=== PATIENT | male | born 1960 | race Caucasian/White ===

== ENCOUNTER 2016-06-02 12:42 | Inpatient (IN) | payer OTHER ==
[2016-06-02 16:11] VITALS: BMI 32.4
--- NOTE | 2016-06-02 19:39 | HP ---
CIWA Score - CIWA Score Nausea/Vomitin Muscle Tremors: 3 Anxiety: 3 Agitation: 3 Paroxysmal Sweats: 2 Orientation: 0-Oriented Tacttile Disturbances: 2-Mild Itch/Numbness/Burn Auditory Disturbances: 2-Mild Harshness/Frighten Visual Disturbances: 2-Mild Sensitivity Headache: 2-Mild CIWA-Ar Total Score: 22 Admission ROS BHS - HPI Chief Complaint: i need help to stop drinking alcohol,xanax,cocaine and marijuana dependence, withdrawal symptom,never been in detox before syncope alcohol related anxiety and depression insomnia nicotine dependence Allergies/Adverse Reactions: Allergies Allergy/AdvReac Type Severity Reaction Status Date / Time No Known Allergies Allergy Verified 06/02/16 17:22 History of Present Illness: this 56 years old male with alcohol,cocaine,xanax and marijuana dependence for detox as mentioned Exam Limitations: No Limitations - Ebola screening Have you traveled outside of the country in the last 21 days: No Have you had contact with anyone from an Ebola affected area: No Have you been sick,other than usual withdrawal symptoms: No Do you have a fever: No - Review of Systems Constitutional: Loss of Appetite, Malaise, Night Sweats, Changes in sleep, Weakness EENT: reports: Nose Congestion Respiratory: reports: No Symptoms reported Cardiac: reports: Palpitations GI: reports: Nausea, Vomiting, Abdominal cramping : reports: No Symptoms Reported Musculoskeletal: reports: Back Pain, Muscle Pain Integumentary: reports: Dryness Neuro: reports: Headache, Tremors Endocrine: reports: No Symptoms Reported Hematology: reports: No Symptoms Reported Psychiatric: reports: No Sypmtoms Reported, Judgement Intact, Mood/Affect Appropiate, Orientated x3, Anxious, Depressed Patient History - Patient Medical History Hx Anemia: No Hx Asthma: No Hx Chronic Obstructive Pulmonary Disease (COPD): No Hx Cancer: No Hx Cardiac Disorders: Yes (IN AGE 47) Hx Congestive Heart Failure: No Hx Hypertension: Yes (non compliance) Hx Hypercholesterolemia: Yes (non complaince) Hx Pacemaker: No HX Cerebrovascular Accident: No Hx Seizures: No Hx Diabetes: Yes (non compliance) Hx Gastrointestinal Disorders: No Hx Liver Disease: No Hx Genitourinary Disorders: No Hx Sexually Transmitted Disorders: No Hx Renal Disease (ESRD): No Hx Thyroid Disease: No Hx Human Immunodeficiency Virus (HIV): No (last 2012 negative) Hx Hepatitis C: No Hx Depression: Yes (anxiety) Hx Suicide Attempt: No Hx Bipolar Disorder: No Hx Schizophrenia: No Other Medical History: no suicidal,no homicidal - Patient Surgical History Past Surgical History: Yes Hx Neurologic Surgery: No Hx Cataract Extraction: No Hx Cardiac Surgery: No Hx Lung Surgery: No Hx Breast Surgery: No Hx Breast Biopsy: No Hx Abdominal Surgery: No Hx Appendectomy: No Hx Cholecystectomy: No Hx Genitourinary Surgery: No Hx Section: No Hx Orthopedic Surgery: Yes (RT FOOT 03/12/2012) Anesthesia Reaction: No - PPD History Previous Implant?: Yes Documented Results: Negative w/o proof Implanted On Prior [facility] Admission?: No PPD to be Administered?: Yes - Smoking Cessation Smoking history: Current every day smoker Have you smoked in the past 12 months: Yes Aproximately how many cigarettes per day: 20 Hx Chewing Tobacco Use: No Initiated information on smoking cessation: Yes 'Breaking Loose' booklet given: 06/02/16 - Substance & Tx. History Hx Alcohol Use: Yes Hx Substance Use: Yes Substance Use Type: Alcohol, Tranquilizers Hx Substance Use Treatment: No - Substances Abused Alprazolam (Xanax) Route: Oral Frequency: Daily Amount used: 4mg Age of first use: 56 Date of Last Use: 06/02/16 Cocaine Route: Inhalation Frequency: Daily Amount used: 3 bags Age of first use: 26 Date of Last Use: 05/31/16 Alcohol Route: Oral Frequency: Daily Amount used: 1/2pint of whisky/6 packs of 12 ozs of beer Age of first use: 20 Date of Last Use: 05/29/16 Marijuana/Hashish Route: Smoking Frequency: 3-6 times per week Amount used: 20$ Age of first use: 20 Date of Last Use: 05/31/16 Family Disease History - Family Disease History Family History: Denies Admission Physical Exam BHS - Vital Signs Vital Signs: Vital Signs - 24 hr 06/02/16 16:08 Temperature 96.1 F L Pulse Rate 95 H Respiratory 20 Rate Blood Pressure 124/87 - Physical General Appearance: Yes: Moderate Distress, Tremorous, Irritable, Sweating, Anxious HEENTM: Yes: Hearing grossly Normal, VINCENT, Pharynx Normal, Nasal Congestion Respiratory: Yes: Lungs Clear, Normal Breath Sounds, No Respiratory Distress Neck: Yes: Supple, Trachea in good position Breast: Yes: Within Normal Limits Cardiology: Yes: Within Normal Limits, Regular Rhythm, Regular Rate, S1, S2 Abdominal: Yes: Within Normal Limits, Normal Bowel Sounds, Non Tender, Flat, Soft Genitourinary: Yes: Within Normal Limits Back: Yes: Muscle Spasm Musculoskeletal: Yes: Back pain, Muscle Pain Extremities: Yes: Normal Range of Motion, Tremors Neurological: Yes: Within Normal Limits, rn call center II-XII NML intact, Fully Oriented, Alert, Motor Strength 5/5 Integumentary: Yes: Dry Lymphatic: Yes: Within Normal Limits - Diagnostic (1) Uncomplicated sedative, hypnotic or anxiolytic withdrawal Current Visit: Yes Status: Acute (2) Cocaine dependence Current Visit: Yes Status: Acute (3) Cannabis dependence Current Visit: Yes Status: Acute (4) Alcohol dependence with uncomplicated withdrawal Current Visit: Yes Status: Acute (5) Syncope Current Visit: Yes Status: Acute (6) Neuropathy Current Visit: Yes Status: Acute (7) Old [place] (myocardial infarction) Current Visit: Yes Status: Acute (8) Anxiety and depression Current Visit: Yes Status: Acute (9) Insomnia Current Visit: Yes Status: Acute (10) Nicotine dependence Current Visit: Yes Status: Acute (11) DM2 (diabetes mellitus, type 2) Current Visit: Yes Status: Acute (12) Hypertension Current Visit: Yes Status: Acute (13) Hypercholesterolemia Current Visit: Yes Status: Acute Cleared for Admission S - Detox or Rehab [facility] Level of Care: Medically Managed Detox Regimen/Protocol: Valium S Breath Alcohol Content Breath Alcohol Content: 0 Urine Drug Screen - Results Drug Screen Negative: No Urine Drug Screen Results: THC-Marijuana, ROBERT-Cocaine, BZO-Benzodiazepines
[2016-06-02] MEDS ORDERED: LOPERAMIDE HCL 2 MG CAPSULE PO PRN (20:02)
[2016-06-02] MEDS ORDERED: MENTHOL/PHENOL 1 EACH UD MM PRN (20:02)
[2016-06-02] MEDS ORDERED: MAGNESIUM HYDROX 2400MG/30ML ORAL SUSPENSION 30 ML CUP PO PRN (20:02)
[2016-06-02] MEDS ORDERED: hydrOXYzine PAMOATE 50 MG CAPSULE (FP) PO PRN (20:02)
[2016-06-02] MEDS ORDERED: IBUPROFEN 400 MG TABLET (FP) PO PRN (20:02)
[2016-06-02] MEDS ORDERED: diazePAM 5 MG TABLET PO ONE (20:02)
[2016-06-02] MEDS ORDERED: diphenhydrAMINE HCL 50 MG CAPSULE PO PRN (20:02)
[2016-06-02] MEDS ORDERED: MAG HYDROX/AL HYDROX/SIMETH 30 ML UNIT-DOSE CUP PO PRN (20:02)
[2016-06-02] MEDS ORDERED: MAGNESIUM CITRATE 300 ML BOTTLE PO PRN (20:02)
[2016-06-02] MEDS ORDERED: ACETAMINOPHEN 325 MG TABLET (FP) PO PRN (20:02)
[2016-06-02] MEDS ORDERED: P-EPHED 60MG/TRIPROLIDI 2.5MG TABLET PO PRN (20:02)
[2016-06-02] MEDS ORDERED: guaiFENesin/D-METHORPHAN HB 10 ML UNIT-DOSE CUPS PO PRN (20:02)
[2016-06-02] MEDS ORDERED: NICOTINE POLACRILEX 2 MG GUM BUC PRN (20:02)
[2016-06-02] MEDS: THIAMINE HCL 100 MG TABLET (FP) PO SCH (22:32)
[2016-06-02] MEDS: GABAPENTIN 300 MG CAPSULE (FP) PO SCH (22:32)
[2016-06-02] MEDS: diazePAM 5 MG TABLET PO SCH (22:55)
[2016-06-03 00:38] LABS: URINE APPEARANCE CLEAR; URINE BILIRUBIN NEGATIVE (NEGATIVE); URINE BLOOD NEGATIVE (NEGATIVE); URINE COLOR YELLOW; URINE GLUCOSE (UA) 1+ (NEGATIVE); URINE KETONE NEGATIVE (NEGATIVE); URINE LEUK ESTERASE NEGATIVE (NEGATIVE); URINE NITRITE NEGATIVE (NEGATIVE); URINE PROTEIN NEGATIVE (NEGATIVE); URINE UROBILINOGEN NEGATIVE E.U./dl (0.2-1.0)
[2016-06-03] MEDS: diazePAM 5 MG TABLET PO SCH ×3 (05:23→22:47)
[2016-06-03] MEDS: GABAPENTIN 300 MG CAPSULE (FP) PO SCH ×3 (05:23→22:47)
[2016-06-03] MEDS ORDERED: INSULIN (NOVOLOG) ASPART 100 UNITS/ML 10ML VIAL ONE ×2 (07:41→17:14)
[2016-06-03] MEDS: metFORMIN HCL 500 MG TABLET (FP) PO SCH ×2 (07:47→17:25)
[2016-06-03] MEDS: INSULIN SLIDING SCALE (NOVOLOG) 1 VIAL SQ SCH ×2 (07:47→17:25)
[2016-06-03 10:12] LABS: MCH 32.9 pg (25.7-33.7); MCHC 33.3 g/dl (32.0-35.9); MEAN CELL VOLUME 98.8 fl (80-96); MEAN PLT VOLUME 8.9 fl (7.5-11.1); PLATELET COUNT 292 K/MM3 (134-434); RDW 13.2 % (11.9-15.9); WHITE BLOOD COUNT 6.8 K/mm3 (4.0-10.0)
--- NOTE | 2016-06-03 10:22 | EKG ---
Test Reason : Blood Pressure : / mmHG Vent. Rate : 083 BPM Atrial Rate : 083 BPM P-R Int : 130 ms QRS Dur : 086 ms QT Int : 372 ms P-R-T Axes : 059 051 032 degrees QTc Int : 437 ms NORMAL SINUS RHYTHM POSSIBLE LEFT ATRIAL ENLARGEMENT NONSPECIFIC ST ABNORMALITY Confirmed by RAH ALLEN MD ([id number]) on 06/03/2016 10:21:52 AM Referred By: Confirmed By:RAH ALLEN MD
[2016-06-03] MEDS: PRENATAL VITAMINS W/ FOLIC ACID TABLET (FP) PO SCH (10:40)
[2016-06-03] MEDS: diazePAM 5 MG TABLET PO PRN (10:42)
[2016-06-03 11:01] LABS: SICKLE CELL SCREEN NEGATIVE (NEGATIVE)
[2016-06-03 12:02] LABS: ALBUMIN 3.6 g/dl (3.4-5.0); ALK PHOS 82 U/L (45-117); ANION GAP 11 (8-16); BILIRUBIN,TOTAL 0.6 mg/dL (0.2-1.0); CALCIUM 9.3 mg/dL (8.5-10.1); CHOLESTEROL 225 mg/dL (50-200); CO2 28 mmol/L (21-32); CREATININE 1.2 mg/dL (0.7-1.3); GLUCOSE,RANDOM 250 mg/dL (74-106); SGOT/AST 31 U/L (15-37); SGPT/ALT 40 U/L (12-78); TOT PROT 7.1 g/dl (6.4-8.2)
--- NOTE | 2016-06-03 12:29 | PN ---
S CIWA - CIWA Score Nausea/Vomitin Muscle Tremors: 3 Anxiety: 3 Agitation: 2 Paroxysmal Sweats: 2 Orientation: 0-Oriented Tacttile Disturbances: 1-Very Mild Itch/Numbness Auditory Disturbances: 1-Very Mild Visual Disturbances: 1-Very Mild Sensitivity Headache: 2-Mild CIWA-Ar Total Score: 18 BHS Progress Note (SOAP) Subjective: ALERT,IRRITABLE,ANXIOUS,INTERRUPTED SLEEP,TREMOR,PAIN IN THE BODY AND BACK Objective: 06/03/16 12:26 Vital Signs Temperature 97.9 F 06/03/16 10:15 Pulse Rate 96 H 06/03/16 10:15 Respiratory Rate 20 06/03/16 10:15 Blood Pressure 118/85 06/03/16 10:15 O2 Sat by Pulse Oximetry (%) Laboratory Last Values WBC 6.8 K/mm3 (4.0-10.0) 06/03/16 06:00 RBC 5.05 M/mm3 (4.00-5.60) 06/03/16 06:00 Hgb 16.6 GM/dL (11.7-16.9) 06/03/16 06:00 Hct 49.9 % (35.4-49) H 06/03/16 06:00 MCV 98.8 fl (80-96) H 06/03/16 06:00 MCHC 33.3 g/dl (32.0-35.9) 06/03/16 06:00 RDW 13.2 % (11.9-15.9) 06/03/16 06:00 Plt Count 292 K/MM3 (134-434) 06/03/16 06:00 MPV 8.9 fl (7.5-11.1) 06/03/16 06:00 Sickle Cell Screen Negative (NEGATIVE) 06/03/16 06:00 Sodium 140 mmol/L (136-145) 06/03/16 06:00 Potassium 4.4 mmol/L (3.5-5.1) 06/03/16 06:00 Chloride 101 mmol/L (98-107) 06/03/16 06:00 Carbon Dioxide 28 mmol/L (21-32) 06/03/16 06:00 Anion Gap 11 (8-16) 06/03/16 06:00 BUN 18 mg/dL (7-18) 06/03/16 06:00 Creatinine 1.2 mg/dL (0.7-1.3) 06/03/16 06:00 Creat Clearance w eGFR > 60 (>60) 06/03/16 06:00 POC Glucometer 226 UNITS (()) 06/03/16 05:22 Random Glucose 250 mg/dL (74-106) H 06/03/16 06:00 Calcium 9.3 mg/dL (8.5-10.1) 06/03/16 06:00 Total Bilirubin 0.6 mg/dL (0.2-1.0) 06/03/16 06:00 AST 31 U/L (15-37) 06/03/16 06:00 ALT 40 U/L (12-78) 06/03/16 06:00 Alkaline Phosphatase 82 U/L (45-117) 06/03/16 06:00 Total Protein 7.1 g/dl (6.4-8.2) 06/03/16 06:00 Albumin 3.6 g/dl (3.4-5.0) 06/03/16 06:00 Triglycerides 239 mg/dL (35-160) H 06/03/16 06:00 Cholesterol 225 mg/dL (50-200) H 06/03/16 06:00 Urine Color Yellow 06/02/16 23:30 Urine Appearance Clear 06/02/16 23:30 Urine pH 5.0 (5.0-8.0) 06/02/16 23:30 Ur Specific [place] 1.030 (1.001-1.035) 06/02/16 23:30 Urine Protein Negative (NEGATIVE) 06/02/16 23:30 Urine Glucose (UA) 1+ (NEGATIVE) H 06/02/16 23:30 Urine Ketones Negative (NEGATIVE) 06/02/16 23:30 Urine Blood Negative (NEGATIVE) 06/02/16 23:30 Urine Nitrite Negative (NEGATIVE) 06/02/16 23:30 Urine Bilirubin Negative (NEGATIVE) 06/02/16 23:30 Urine Urobilinogen Negative E.U./dl (0.2-1.0) 06/02/16 23:30 Ur Leukocyte Esterase Negative (NEGATIVE) 06/02/16 23:30 06/03/16 12:27 EKG NSR NO CHEST PAIN,NO SOB,NO DIZZINESS Assessment: 06/03/16 12:27 06/03/16 12:28 WITHDRAWAL SYMPTOM Plan: CONTINUE DETOX
--- NOTE | 2016-06-03 12:32 | PN ---
[facility] Progress Note Note: PATIENT IS SPORADIC USE OF PERCOCET,URINE FOR DRUG SCREEN NEGATIVE FOR OPIATE, STATED DID NOT NEED DETOX FROMOPIATE,WILL D.C METHADONE,REGIMEN LIBRIUM REGIMEN ONLY
--- NOTE | 2016-06-03 12:36 | PN ---
[facility] Progress Note Note: ADDENDUM PATIENT IS ON VALIUM REGIMEN ONLY NOT LIBRIUM
[2016-06-03 13:37] LABS: LDL CHOLESTEROL (ONLY SJRH) 145 mg/dL (5-100)
--- NOTE | 2016-06-03 14:48 | CONSULT ---
[facility] Psychiatric Consult - Data Date of interview: 06/03/16 Admission source: [facility] Identifying data: First admission to [facility] for this 56 y/o male seeking detox treatment for alcohol,cocaine,xanax,marihuana and opiate dependence.Patient is ,a father of two,domiciled,unemployed and supported on [employer] benefits. Substance Abuse History: - Smoking Cessation. Smoking history: Current every day smoker. Have you smoked in the past 12 months: Yes. Aproximately how many cigarettes per day: 20. Hx Chewing Tobacco Use: No. Initiated information on smoking cessation: Yes. 'Breaking Loose' booklet given: 06/02/16. - Substance & Tx. History. Hx Alcohol Use: Yes. Hx Substance Use: Yes. Substance Use Type : Alcohol, Tranquilizers. Hx Substance Use Treatment: No. - Substances Abused. Alprazolam (Xanax). Route: Oral. Frequency: Daily. Amount used: 4mg. Age of first use: 56. Date of Last Use: 06/02/16. Cocaine. Route: Inhalation. Frequency: Daily. Amount used: 3 bags. Age of first use: 26. Date of Last Use: 05/31/16. Alcohol. Route: Oral. Frequency: Daily. Amount used: 1/2pint of whisky/6 packs of 12 ozs of beer. Age of first use: 20. Date of Last Use: 05/29/16. Marijuana/Hashish. Route: Smoking. Frequency: 3-6 times per week. Amount used: 20$. Age of first use: 20. Date of Last Use: 05/31/16. Confirmed by patient. Medical History: Diabetes mellitus,hypertension,hypercholesterolemia and a history of myocardial infarction.Noted additional history of orthosurgery for fracture of right nakle (hardware in situ). Psychiatric History: Patient denies. Physical/Sexual Abuse/Trauma History: Patient denies. Additional Comment: Urine Drug Screen Results: THC-Marijuana, ROBERT-Cocaine, BZO- Benzodiazepines.Noted. Mental Status Exam - Mental Status Exam Alert and Oriented to: Time, Place, Person Cognitive Function: Good Patient Appearance: Well Groomed (obese) Mood: Hopeful, Euthymic Affect: Appropriate, Normal Range Patient Behavior: Appropriate, Cooperative Speech Pattern: Clear, Appropriate Voice Loudness: Normal Thought Process: Goal Oriented Thought Disorder: Not Present Hallucinations: Denies Suicidal Ideation: Denies Homicidal Ideation: Denies Insight/Judgement: Poor Sleep: Poorly, Difficulty falling asleep Appetite: Good Muscle strength/Tone: Normal Gait/Station: Normal Psychiatric Findings - Problem List ([place] 1, 2,3) (1) Alcohol dependence with uncomplicated withdrawal Current Visit: Yes Status: Acute (2) Cannabis dependence Current Visit: Yes Status: Acute (3) Cocaine dependence Current Visit: Yes Status: Acute (4) Uncomplicated sedative, hypnotic or anxiolytic withdrawal Current Visit: Yes Status: Acute (5) Nicotine dependence Current Visit: Yes Status: Acute (6) Substance induced mood disorder Current Visit: Yes Status: Acute (7) DM2 (diabetes mellitus, type 2) Current Visit: Yes Status: Chronic (8) Hypercholesterolemia Current Visit: Yes Status: Chronic (9) Hypertension Current Visit: Yes Status: Chronic (10) Neuropathy Current Visit: Yes Status: Chronic (11) Old [place] (myocardial infarction) Current Visit: Yes Status: Chronic (12) Insomnia Current Visit: Yes Status: Acute - Initial Treatment Plan Initial Treatment Plan: Psychoeducation.Detoxification.Medication : remeron 7.5 mg po hs.Side effects/benefits discussed with the patient.Consent (verbal) given for this careplan.Observation.
[2016-06-03] MEDS: THIAMINE HCL 100 MG TABLET (FP) PO SCH (22:47)
[2016-06-03] MEDS: MIRTAZAPINE 15 MG TABLET (FP) PO SCH (22:47)
[2016-06-04] MEDS: GABAPENTIN 300 MG CAPSULE (FP) PO SCH ×3 (05:56→23:01)
[2016-06-04] MEDS: diazePAM 5 MG TABLET PO PRN (05:58)
[2016-06-04] MEDS: metFORMIN HCL 500 MG TABLET (FP) PO SCH ×2 (07:33→17:03)
[2016-06-04] MEDS ORDERED: INSULIN (NOVOLOG) ASPART 100 UNITS/ML 10ML VIAL ONE ×2 (07:39→18:30)
[2016-06-04] MEDS: INSULIN SLIDING SCALE (NOVOLOG) 1 VIAL SQ SCH ×2 (07:44→18:03)
[2016-06-04] MEDS: diazePAM 5 MG TABLET PO SCH ×2 (10:36→23:01)
[2016-06-04] MEDS: PRENATAL VITAMINS W/ FOLIC ACID TABLET (FP) PO SCH (10:36)
--- NOTE | 2016-06-04 10:46 | PN ---
S CIWA - CIWA Score Nausea/Vomitin Muscle Tremors: 3 Anxiety: 2 Agitation: 2 Paroxysmal Sweats: 1-Minimal Palms Moist Orientation: 0-Oriented Tacttile Disturbances: 1-Very Mild Itch/Numbness Auditory Disturbances: 1-Very Mild Visual Disturbances: 1-Very Mild Sensitivity Headache: 2-Mild CIWA-Ar Total Score: 16 S Progress Note (SOAP) Subjective: ALERT,IRRITABLE,ANXIOUS,INTERRUPTED SLEEP,PAIN IN THE BODY Objective: 06/04/16 10:45 Vital Signs Temperature 97.3 F L 06/04/16 09:54 Pulse Rate 99 H 06/04/16 09:54 Respiratory Rate 16 06/04/16 09:54 Blood Pressure 120/78 06/04/16 09:54 O2 Sat by Pulse Oximetry (%) Laboratory Last Values WBC 6.8 K/mm3 (4.0-10.0) 06/03/16 06:00 RBC 5.05 M/mm3 (4.00-5.60) 06/03/16 06:00 Hgb 16.6 GM/dL (11.7-16.9) 06/03/16 06:00 Hct 49.9 % (35.4-49) H 06/03/16 06:00 MCV 98.8 fl (80-96) H 06/03/16 06:00 MCHC 33.3 g/dl (32.0-35.9) 06/03/16 06:00 RDW 13.2 % (11.9-15.9) 06/03/16 06:00 Plt Count 292 K/MM3 (134-434) 06/03/16 06:00 MPV 8.9 fl (7.5-11.1) 06/03/16 06:00 Sickle Cell Screen Negative (NEGATIVE) 06/03/16 06:00 Sodium 140 mmol/L (136-145) 06/03/16 06:00 Potassium 4.4 mmol/L (3.5-5.1) 06/03/16 06:00 Chloride 101 mmol/L (98-107) 06/03/16 06:00 Carbon Dioxide 28 mmol/L (21-32) 06/03/16 06:00 Anion Gap 11 (8-16) 06/03/16 06:00 BUN 18 mg/dL (7-18) 06/03/16 06:00 Creatinine 1.2 mg/dL (0.7-1.3) 06/03/16 06:00 Creat Clearance w eGFR > 60 (>60) 06/03/16 06:00 POC Glucometer 227 UNITS (()) 06/03/16 16:23 Random Glucose 250 mg/dL (74-106) H 06/03/16 06:00 Calcium 9.3 mg/dL (8.5-10.1) 06/03/16 06:00 Total Bilirubin 0.6 mg/dL (0.2-1.0) 06/03/16 06:00 AST 31 U/L (15-37) 06/03/16 06:00 ALT 40 U/L (12-78) 06/03/16 06:00 Alkaline Phosphatase 82 U/L (45-117) 06/03/16 06:00 Total Protein 7.1 g/dl (6.4-8.2) 06/03/16 06:00 Albumin 3.6 g/dl (3.4-5.0) 06/03/16 06:00 Triglycerides 239 mg/dL (35-160) H 06/03/16 06:00 Cholesterol 225 mg/dL (50-200) H 06/03/16 06:00 Total LDL Cholesterol 145 mg/dL (5-100) H 06/03/16 06:00 HDL Cholesterol 64 mg/dL (40-60) H 06/03/16 06:00 Urine Color Yellow 06/02/16 23:30 Urine Appearance Clear 06/02/16 23:30 Urine pH 5.0 (5.0-8.0) 06/02/16 23:30 Ur Specific [place] 1.030 (1.001-1.035) 06/02/16 23:30 Urine Protein Negative (NEGATIVE) 06/02/16 23:30 Urine Glucose (UA) 1+ (NEGATIVE) H 06/02/16 23:30 Urine Ketones Negative (NEGATIVE) 06/02/16 23:30 Urine Blood Negative (NEGATIVE) 06/02/16 23:30 Urine Nitrite Negative (NEGATIVE) 06/02/16 23:30 Urine Bilirubin Negative (NEGATIVE) 06/02/16 23:30 Urine Urobilinogen Negative E.U./dl (0.2-1.0) 06/02/16 23:30 Ur Leukocyte Esterase Negative (NEGATIVE) 06/02/16 23:30 RPR Titer Nonreactive (NONREACTIVE) 06/03/16 06:00 Assessment: 06/04/16 10:45 WITHDRAWAL SYMPTOM Plan: CONTINUE DETOX,BGM MONITORING
[2016-06-04] MEDS: MIRTAZAPINE 15 MG TABLET (FP) PO SCH (23:02)
[2016-06-04] MEDS: THIAMINE HCL 100 MG TABLET (FP) PO SCH (23:03)
[2016-06-05] MEDS: GABAPENTIN 300 MG CAPSULE (FP) PO SCH ×3 (05:26→22:32)
[2016-06-05] MEDS: metFORMIN HCL 500 MG TABLET (FP) PO SCH ×2 (08:03→17:02)
[2016-06-05] MEDS: INSULIN SLIDING SCALE (NOVOLOG) 1 VIAL SQ SCH ×2 (08:03→17:13)
[2016-06-05] MEDS: PRENATAL VITAMINS W/ FOLIC ACID TABLET (FP) PO SCH (10:30)
[2016-06-05] MEDS: diazePAM 5 MG TABLET PO SCH ×2 (10:30→22:32)
--- NOTE | 2016-06-05 14:53 | PN ---
[facility] Progress Note (SOAP) Subjective: Anxious, nausea, sweating, interrupted sleep Objective: 06/05/16 14:50 Last Vital Signs Temp Pulse Resp BP Pulse Ox 97.2 F L 99 H 18 116/79 06/05/16 13:51 06/05/16 13:51 06/05/16 13:51 06/05/16 13:51 Laboratory Tests 06/02/16 06/02/16 06/03/16 17:36 23:30 05:22 WBC RBC Hgb Hct MCV MCHC RDW Plt Count MPV Sickle Cell Screen Sodium Potassium Chloride Carbon Dioxide Anion Gap BUN Creatinine Creat Clearance w eGFR POC Glucometer 154 226 Random Glucose Calcium Total Bilirubin AST ALT Alkaline Phosphatase Total Protein Albumin Triglycerides Cholesterol Total LDL Cholesterol HDL Cholesterol Urine Color Yellow Urine Appearance Clear Urine pH 5.0 Ur Specific [place] 1.030 Urine Protein Negative Urine Glucose (UA) 1+ H Urine Ketones Negative Urine Blood Negative Urine Nitrite Negative Urine Bilirubin Negative Urine Urobilinogen Negative Ur Leukocyte Esterase Negative RPR Titer 06/03/16 06/03/16 06/03/16 06:00 06:00 06:00 WBC 6.8 RBC 5.05 Hgb 16.6 Hct 49.9 H MCV 98.8 H MCHC 33.3 RDW 13.2 Plt Count 292 MPV 8.9 Sickle Cell Screen Negative Sodium 140 Potassium 4.4 Chloride 101 Carbon Dioxide 28 Anion Gap 11 BUN 18 Creatinine 1.2 Creat Clearance w eGFR > 60 POC Glucometer Random Glucose 250 H Calcium 9.3 Total Bilirubin 0.6 AST 31 ALT 40 Alkaline Phosphatase 82 Total Protein 7.1 Albumin 3.6 Triglycerides 239 H Cholesterol 225 H Total LDL Cholesterol 145 H HDL Cholesterol 64 H Urine Color Urine Appearance Urine pH Ur Specific [place] Urine Protein Urine Glucose (UA) Urine Ketones Urine Blood Urine Nitrite Urine Bilirubin Urine Urobilinogen Ur Leukocyte Esterase RPR Titer Nonreactive 06/03/16 06/04/16 06/05/16 16:23 18:01 05:29 WBC RBC Hgb Hct MCV MCHC RDW Plt Count MPV Sickle Cell Screen Sodium Potassium Chloride Carbon Dioxide Anion Gap BUN Creatinine Creat Clearance w eGFR POC Glucometer 227 329 153 Random Glucose Calcium Total Bilirubin AST ALT Alkaline Phosphatase Total Protein Albumin Triglycerides Cholesterol Total LDL Cholesterol HDL Cholesterol Urine Color Urine Appearance Urine pH Ur Specific [place] Urine Protein Urine Glucose (UA) Urine Ketones Urine Blood Urine Nitrite Urine Bilirubin Urine Urobilinogen Ur Leukocyte Esterase RPR Titer Labs noted: elevated Lipid panel Assessment: 06/05/16 14:50 Withdrawal symptoms Noted with HLD Plan: Continue detox HLD: start lipitor 10mg PO qhs, low fat/low cholesterol diet
[2016-06-05] MEDS ORDERED: ATORVASTATIN CA 10 MG TABLET (FP) PO SCH (22:00)
[2016-06-05] MEDS: MIRTAZAPINE 15 MG TABLET (FP) PO SCH (22:31)
[2016-06-05] MEDS: THIAMINE HCL 100 MG TABLET (FP) PO SCH (22:33)
[2016-06-06] MEDS: GABAPENTIN 300 MG CAPSULE (FP) PO SCH (05:35)
[2016-06-06] MEDS ORDERED: INSULIN (NOVOLOG) ASPART 100 UNITS/ML 10ML VIAL ONE (07:47)
[2016-06-06] MEDS: INSULIN SLIDING SCALE (NOVOLOG) 1 VIAL SQ SCH (07:49)
[2016-06-06] MEDS: metFORMIN HCL 500 MG TABLET (FP) PO SCH (07:49)
--- NOTE | 2016-06-06 08:44 | DS ---
[facility] Detox Discharge Summary Admission Date: 06/02/16 Discharge Date: 06/06/16 - History Present History: Alcohol Dependence, Cannabis Dependence, Cocaine Dependence, Sedative Dependence - Physical Exam Results Vital Signs: Vital Signs Temperature 97 F L 06/06/16 05:56 Pulse Rate 77 06/06/16 05:56 Respiratory Rate 18 06/06/16 05:56 Blood Pressure 110/71 06/06/16 05:56 O2 Sat by Pulse Oximetry (%) - Treatment Hospital Course: Detox Protocol Followed, Detoxed Safely, Responded well, Discharged Condition Good, Rehab Referral Accepted - Medication Discharge Medications: Ambulatory Orders Gabapentin [Neurontin] 300 mg PO TID 03/29/15 Metformin HCl 500 mg PO BID 03/29/15 Lisinopril [Prinivil] 10 mg PO DAILY 06/04/16 - Diagnosis (1) Alcohol dependence with uncomplicated withdrawal Current Visit: Yes Status: Chronic (2) Anxiety and depression Current Visit: Yes Status: Chronic (3) Cannabis dependence Current Visit: Yes Status: Chronic (4) Cocaine dependence Current Visit: Yes Status: Chronic Qualifiers: Substance use status: uncomplicated Qualified Code(s): F14.20 - Cocaine dependence, uncomplicated (5) Insomnia Current Visit: Yes Status: Acute (6) Nicotine dependence Current Visit: Yes Status: Chronic Qualifiers: Nicotine product type: cigarettes Substance use status: uncomplicated Qualified Code(s): F17.210 - Nicotine dependence, cigarettes, uncomplicated (7) Substance induced mood disorder Current Visit: Yes Status: Acute (8) Syncope Current Visit: Yes Status: Acute (9) Uncomplicated sedative, hypnotic or anxiolytic withdrawal Current Visit: Yes Status: Chronic (10) DM2 (diabetes mellitus, type 2) Current Visit: Yes Status: Chronic Qualifiers: Diabetes mellitus complication status: without complication (11) Hypercholesterolemia Current Visit: Yes Status: Chronic (12) Hypertension Current Visit: Yes Status: Chronic (13) Neuropathy Current Visit: Yes Status: Chronic (14) [place] (myocardial infarction) Current Visit: Yes Status: Chronic (15) Acute bronchitis Current Visit: No Status: Acute Qualifiers: Bronchitis organism: unspecified organism Qualified Code(s): J20.9 - Acute bronchitis, unspecified - AMA Did Patient Leave Against Medical Advice: No
[2016-06-06] MEDS ORDERED: diazePAM 5 MG TABLET PO SCH (10:00)
[2016-06-06 10:21] VITALS: BP 125/91; PULSE 104; TEMP 97.5
[2016-06-06] MEDS: PRENATAL VITAMINS W/ FOLIC ACID TABLET (FP) PO SCH (10:51)
== END 2016-06-06 10:55 | disposition home or self-care (01) | DRG 774 ==
LOC: YASAS 12:42 → Y6N 19:56
PROVIDERS: ADMIT Internal Medicine Addiction Medicine; ATTEND Internal Medicine Addiction Medicine
PROC: HZ2ZZZZ Detoxification Services for Substance Abuse Treatment (ICD-10-PCS; principal; 2016-06-02)
DX: F13.230 Sedative, hypnotic or anxiolytic dependence with withdrawal, uncomplicated (principal); F10.230 Alcohol dependence with withdrawal, uncomplicated; F14.20 Cocaine dependence, uncomplicated; F12.20 Cannabis dependence, uncomplicated; F17.210 Nicotine dependence, cigarettes, uncomplicated; F41.8 Other specified anxiety disorders; F19.24 Other psychoactive substance dependence with psychoactive substance-induced mood disorder; J20.9 Acute bronchitis, unspecified; E11.9 Type 2 diabetes mellitus without complications; E78.00 Pure hypercholesterolemia, unspecified; I10 Essential (primary) hypertension; I25.2 Old myocardial infarction; G62.9 Polyneuropathy, unspecified; Z86.79 Personal history of other diseases of the circulatory system; Z91.14 Patient's other noncompliance with medication regimen
CPT/HCPCS: 36415; 80053; 80061; 81003; 83721; 85027; 85660; 86593; 93005; 93010

== ENCOUNTER 2018-11-01 22:53 | Emergency (ER) | payer OTHER ==
--- NOTE | 2018-11-01 23:01 | PDOC ---
History of Present Illness - General Stated Complaint: SYNCOPE/NEAR SYNCOPE Time Seen by Provider: 11/01/18 23:00 History Source: Patient Exam Limitations: No Limitations - History of Present Illness Initial Comments: Pt is a 58 yo M, with PMH of HTN, DM, WPW with prior ablation, and prior polysubstance abuse (went to detox previously for alcohol, THC, cocaine, and xanax), who is presenting with complaints of near-syncope. Pt states he had multiple teeth pulled at 2pm today, received local novicaine, and then slept at home for a few hours. He then went to the bar, where he drank a beer and ate a hamburger, which he then vomited. Pt states he "felt like he passed out" but his friends caught him and he did not fall or hit his head. Pt endorses medication compliance. Pt denies any recent fevers/chills, headache, vision changes, chest pain, palpitations, SOB, abdominal pain, urinary symptoms, diarrhea/constipation, or leg swelling. Allergies: NKDA PCP: Gilbert Montenegro Social: Pt smokes 1/2 pack every other day, THC use, social alcohol. Pt states he has abstained from other drugs and heavy alcohol since his last detox. Pt denies any recent travel or sick contacts. Surgical: 2 molars pulled today. Family: no relevant history. 11/01/18 23:16 11/02/18 00:23 Past History - Travel Traveled outside of the country in the last 30 days: No Close contact w/someone who was outside of country & ill: No - Past Medical History Allergies/Adverse Reactions: Allergies Allergy/AdvReac Type Severity Reaction Status Date / Time No Known Allergies Allergy Verified 06/02/16 17:22 Home Medications: Ambulatory Orders Gabapentin [Neurontin] 300 mg PO TID 03/29/15 metFORMIN HCL [Metformin HCl] 500 mg PO BID 03/29/15 Lisinopril [Prinivil] 10 mg PO DAILY 06/04/16 Anemia: No Asthma: No Cancer: No Cardiac Disorders: Yes (VT AGE 47) CVA: No COPD: No CHF: No Diabetes: Yes (non compliance) GI Disorders: No Disorders: No HTN: Yes (non compliance) Hypercholesterolemia: Yes (non complaince) Kidney Stones: No Liver Disease: No Psychiatric Problems: Yes Seizures: No Thyroid Disease: No - Surgical History Abdominal Surgery: No Appendectomy: No Cardiac Surgery: No Cholecystectomy: No Lung Surgery: No Neurologic Surgery: No Orthopedic Surgery: Yes (RT FOOT 03/12/2012) - Reproductive History Testicular Surgery: No - Suicide/Smoking/Psychosocial Hx Smoking History: Current every day smoker Have you smoked in the past 12 months: Yes Number of Cigarettes Smoked Daily: 20 'Breaking Loose' booklet given: 06/02/16 Hx Alcohol Use: Yes Drug/Substance Use Hx: Yes Substance Use Type: Alcohol, Tranquilizers Hx Substance Use Treatment: No Review of Systems - Review of Systems Able to Perform ROS?: Yes Is the patient limited Kyrgyz proficient: No Constitutional: Yes: See HPI, Diaphoresis, Weight Stable. No: Chills, Fever, Loss of Appetite, Malaise, Weakness HEENTM: Yes: See HPI, Dental Problems. No: Blurred Vision, Double Vision, Nose Congestion, Throat Pain, Throat Swelling, Difficulty Swallowing Respiratory: No: Cough, Orthopnea, Shortness of Breath Cardiac (ROS): Yes: Lightheadedness. No: Chest Pain, Edema, Irregular Heart Rate, Palpitations, Syncope (near syncope), Chest Tightness ABD/GI: Yes: Nausea, Vomiting. No: Constipated, Diarrhea, Poor Appetite, Poor Fluid Intake, Rectal Bleeding, Abdominal cramping : No: Burning, Dysuria, Frequency, Pain, Urgency Musculoskeletal: No: Back Pain, Joint Pain, Muscle Pain, Muscle Weakness Integumentary: No: Rash Neurological: No: Headache, Numbness, Weakness, Unsteady Gait, Dizziness Psychiatric: No: Sleep Pattern Change, Change in Appetite Endocrine: No: Increased Urine, Change in Weight Hematologic/Lymphatic: No: Anemia, Blood Clots, Easy Bleeding, Easy Bruising All Other Systems: Reviewed and Negative *Physical Exam - Physical Exam Comments: 11/01/18 23:28 Vitals stable, pt afebrile. Pt in NAD, joking with staff and lying comfortably on the stretcher; obese body habitus. Pt alert and oriented x3. labor economist generally intact, muscular strength and sensation intact. No midline spinal tenderness, step-offs, or crepitus. Head normocephalic, atraumatic. Eyes PERRLA, EOMI. Packing along R upper posterior molars with mild serosanguinous drainage. No significant erythema, drainage, or bleeding noted. Oropharynx without erythema or exudates, no LAD b/l. No nasal congestion, hearing intact. Clear heart sounds, S1/S2, no JVD, b/l pedal edema, or heart murmur. Clear lung sounds, no respiratory distress, wheezes, crackles, or accessory muscle use. No abdominal or CVA tenderness to palpation, no rebound, no guarding. Abdomen soft, non-distended, and with normoactive bowel sounds. Skin without jaundice or rash. 11/02/18 00:25 ED Treatment Course - LABORATORY CBC & Chemistry Diagram: 11/02/18 00:08 11/02/18 00:08 Medical Decision Making - Medical Decision Making Pt was seen at bedside, also will be seen by attending Dr. Saldana. Pt presenting with complaints of vomiting x1 after receiving local novicaine and having 2 molars pulled earlier today. Bedside BGM 165. Will evaluate for anemia , electrolyte imbalances. Will obtain ECG. EMS provided 1 L IV NS and 4 mg IV zofran, pt states he already feels much better. Will continue to reassess pt and monitor for symptomatic improvement. ECG: NSR, intervals WNL (HR 74, WV 130, QRS 82). TWI in III, with no significant ST segment changes. No significant changes from prior ECG (2017). 11/01/18 23:30 Labs sent Providing tylenol and home dose of gabapentin (800 mg PO) as pt did not take his medication earlier. 11/02/18 00:25 CBC and CMP WNL Trop <.02 with no EKG changes Pt safe for d/c home. Strict return precautions provided with pt understanding. 11/02/18 02:08 *DC/Admit/Observation/Transfer Diagnosis at time of Disposition: Near syncope H/O tooth extraction Qualifiers: Tooth loss class: unspecified tooth loss Qualified Code(s): K08.409 - Partial loss of teeth, unspecified cause, unspecified class DM2 (diabetes mellitus, type 2) Qualifiers: Diabetes mellitus mcc insulin use: without mcc use Diabetes mellitus complication status: without complication Qualified Code(s): E11.9 - Type 2 diabetes mellitus without complications - Discharge Dispostion Disposition: HOME Condition at time of disposition: Improved Decision to Admit order: No - Referrals Referrals: Gilbert Cruz [Primary Care Provider] - - Patient Instructions Printed Discharge Instructions: DI for Syncope in Adults (Fainting) Additional Instructions: You were seen in the ER today for an episode of fainting. The results of your labs and imaging today were normal. Please follow-up with your primary care doctor within 1-2 days to discuss your visit and make sure your symptoms have improved. Please return to the ER if you have any worsening pain, development of fevers or chills, loss of consciousness, inability to tolerate food or fluids , or any other concerns. - Post Discharge Activity
[2018-11-01 23:14] VITALS: BP 127/86; PULSE 77; TEMP 98.2; BMI 34.2
--- NOTE | 2018-11-02 00:05 | PDOC ---
Documentation entered by Ev Patel SCRIBE, acting as scribe for Danae Saldana MD. Danae Saldana MD: This documentation has been prepared by the robelibe, Ev Patel SCRIBE, under my direction and personally reviewed by me in its entirety. I confirm that the documentation accurately reflects all work, treatment, procedures, and medical decision making performed by me. Attending Attestation - Resident Resident Name: Chelle Fernandez - HPI HPI: 11/01/18 23:49 The patient is a 58-year-old male with a past medical history significant for HTN, HLD, WPW, AL s/p cath, DM who presents to the emergency department via EMS s/p a syncopal episode SOCK DRIER. The patient had a procedure done at the dentists office at 2:00 pm today, where he was given local novocaine and had multiple teeth pulled out. The patient reports a few hours later he went to the bar to watch the game, where he had one beer and a hamburger, which he vomited. The patient reports following he felt dizzy followed by witnessed LOC. Denies falling on the floor or head injury. Denies fever, chills, headache, vision changes, chest pain, or shortness of breath. The patient reports about 2 months prior he had a similar syncopal episode at home, denies follow up. Allergies: NKDA PCP: Dr. Cruz - Physicial Exam PE: 11/01/18 23:54 Agree with resident exam. gen: alert, NAD CV: rrr no m/r/g Pulm: CTA b/l abdomen: obese, soft, non tender, non distended. - Medical Decision Making 11/01/18 23:59 Pt presents to the ED complaining of lightheadness, nausea and vomiting that occurred while drinking. Questionable whether the patient had syncope--he reports LOC, but remained upright on a bar stool. EKG shows normal sinus rhythm. Will check labs and cardiac enzymes, reassess.
[2018-11-02] MEDS ORDERED: GABAPENTIN 400 MG CAPSULE (FP) PO ONE (00:26)
[2018-11-02] MEDS ORDERED: ACETAMINOPHEN 325 MG TABLET (FP) PO ONE (00:26)
[2018-11-02] MEDS ORDERED: ACETAMINOPHEN 325 MG TABLET (FP) ONE (00:32)
[2018-11-02 01:17] LABS: BASO % 0.6 % (0-2.0); EOS % 0.6 % (0-4.5); HEMATOCRIT 44.5 % (35.4-49); HEMOGLOBIN 14.6 GM/dL (11.7-16.9); LYMPH % 8.2 % (8-40); MCHC 32.7 g/dl (32.0-35.9); MEAN CELL VOLUME 97.8 fl (80-96); MEAN PLT VOLUME 8.5 fl (7.5-11.1); MONO % 7.7 % (3.8-10.2); NEUT % 82.9 % (42.8-82.8); PLATELET COUNT 279 K/MM3 (134-434); RBC 4.55 M/mm3 (4.00-5.60); RDW 13.4 % (11.9-15.9); WHITE BLOOD COUNT 11.1 K/mm3 (4.0-10.0)
[2018-11-02 01:38] LABS: ALBUMIN 3.7 g/dl (3.4-5.0); ALK PHOS 75 U/L (45-117); ANION GAP 9 MMOL/L (8-16); BILIRUBIN,TOTAL 0.5 mg/dL (0.2-1); BLOOD UREA NITROGEN 24.3 mg/dL (7-18); CALCIUM 9.1 mg/dL (8.5-10.1); CHLORIDE 107 mmol/L (98-107); CO2 26 mmol/L (21-32); CREATININE 1.6 mg/dL (0.55-1.3); GLUCOSE,RANDOM 154 mg/dL (74-106); LIPASE 180 U/L (73-393); POTASSIUM 4.6 mmol/L (3.5-5.1); SGOT/AST 37 U/L (15-37); SGPT/ALT 43 U/L (13-61); SODIUM 142 mmol/L (136-145); TOT PROT 6.5 g/dl (6.4-8.2)
--- NOTE | 2018-11-02 11:45 | EKG ---
Test Reason : Blood Pressure : / mmHG Vent. Rate : 074 BPM Atrial Rate : 074 BPM P-R Int : 130 ms QRS Dur : 082 ms QT Int : 392 ms P-R-T Axes : 062 031 013 degrees QTc Int : 435 ms NORMAL SINUS RHYTHM NORMAL ECG WHEN COMPARED WITH ECG OF 02-JUN-2016 19:54, NONSPECIFIC T WAVE ABNORMALITY NOW EVIDENT IN LATERAL LEADS Confirmed by ROXANA FERNANDEZ MD ([id number]) on 11/02/2018 11:44:48 AM Referred By: Confirmed By:ROXANA FERNANDEZ MD
== END 2018-11-02 02:43 | disposition home or self-care (01) ==
LOC: JER 22:53 → SUPCPDRO 22:53 → JER 11-02 02:43
DX: R55 Syncope and collapse (principal); K08.409 Partial loss of teeth, unspecified cause, unspecified class; E11.9 Type 2 diabetes mellitus without complications; I10 Essential (primary) hypertension; I25.10 Atherosclerotic heart disease of native coronary artery without angina pectoris; Z95.5 Presence of coronary angioplasty implant and graft; Z91.14 Patient's other noncompliance with medication regimen
CPT/HCPCS: 36415; 80053; 82962; 83690; 84484; 85025; 93005; 93010; 99283-25

== ENCOUNTER 2021-04-18 13:58 | Emergency (ER) | payer OTHER ==
[2021-04-18 14:03] VITALS: BP 145/89; PULSE 108; TEMP 97; BMI 29.7
[2021-04-18] MEDS ORDERED: DIPHTH,PERTUSS(ACELL),TET 0.5 ML DISP.SYRIN IM ONE ×2 (14:22→14:28)
== END 2021-04-18 15:20 | disposition short-term general hospital (02) ==
LOC: JERFT 13:58
PROC: 3E0234Z Introduction of Serum, Toxoid and Vaccine into Muscle, Percutaneous Approach (ICD-10-PCS; principal; 2021-04-18)
DX: S09.90XA Unspecified injury of head, initial encounter (principal); S61.411A Laceration without foreign body of right hand, initial encounter; S50.01XA Contusion of right elbow, initial encounter; W11.XXXA Fall on and from ladder, initial encounter
CPT/HCPCS: 90471; 90715; 99285-25

== ENCOUNTER 2022-09-19 17:36 | Inpatient (IN) | payer OTHER ==
[2022-09-19] MEDS ORDERED: DEXAMETHASONE SOD PHOSPHATE 10 MG/1 ML VIAL IVPUSH ONE (18:02)
[2022-09-19] MEDS ORDERED: CLINDAMYCIN 900 MG PREMIX IVPB 900 MG/50 ML BAG IVPB ONE ×2 (18:02→18:19)
[2022-09-19] MEDS ORDERED: SUCCINYLCHOLINE CHLORIDE 200 MG/10 ML VIAL IVPUSH ONE (18:09)
[2022-09-19] MEDS ORDERED: KETAMINE HCL 200 MG/20 ML VIAL IVPUSH ONE (18:11)
[2022-09-19] MEDS ORDERED: KETAMINE HCL 200 MG/20 ML VIAL ONE (18:18)
[2022-09-19] MEDS ORDERED: DEXAMETHASONE SOD PHOSPHATE 10 MG/1 ML VIAL ONE (18:18)
[2022-09-19] MEDS ORDERED: PROPOFOL 1,000,000 MCG/100 ML VIAL ONE (18:19)
[2022-09-19] MEDS ORDERED: RAPID SEQUENCE INTUBATION KIT NR ONE (18:20)
[2022-09-19] MEDS ORDERED: LIDOCAINE HCL 2% (50ML VIAL) INF ONE (18:27)
[2022-09-19] MEDS ORDERED: LIDOCAINE HCL 2% (20ML MULTI-DOSE VIAL) ONE (18:29)
[2022-09-19 18:47] LABS: VENOUS BASE EXCESS 0.2 mmol/L (-2-2); VENOUS O2 SATURATION 61.9 % (70-80); VENOUS PCO2 43.6 mmHg (38-52); VENOUS PH 7.385 (7.310-7.410)
[2022-09-19 18:50] LABS: BASO % 0.2 % (0-2.0); EOS % 0.1 % (0-4.5); HEMATOCRIT 47.1 % (35.4-49); HEMOGLOBIN 15.6 GM/dL (11.7-16.9); LYMPH % 4.6 % (8-40); MCH 31.7 pg (25.7-33.7); MEAN CELL VOLUME 96.1 fl (80-96); MEAN PLT VOLUME 7.9 fl (7.5-11.1); MONO % 6.8 % (3.8-10.2); NEUT % 88.3 % (42.8-82.8); PLATELET COUNT 297 10^3/uL (134-434); RBC 4.91 M/mm3 (4.00-5.60); RDW 14.1 % (11.9-15.9); WHITE BLOOD COUNT 19.6 K/mm3 (4.0-10.0)
[2022-09-19] MEDS ORDERED: ROCURONIUM BROMIDE 50 MG/5 ML SYRINGE ONE (18:50)
[2022-09-19 18:54] LABS: INR 1.03 (0.83-1.09); PROTHROMBIN TIME (PATIENT) 11.9 SEC (9.7-13.0)
[2022-09-19 18:57] LABS: ACTIVATED PTT 30.2 SECONDS (25.2-36.5)
[2022-09-19] MEDS: PROPOFOL 1,000,000 MCG/100 ML VIAL IVPB SCH ×2 (19:00→22:15)
[2022-09-19 19:10] LABS: POTASSIUM 4.2 mmol/L (3.5-5.1)
[2022-09-19 19:13] LABS: BLOOD UREA NITROGEN 15.9 mg/dL (7-18); CALCIUM 9.1 mg/dL (8.5-10.1)
[2022-09-19] MEDS ORDERED: morphine CARPU-JECT 2 MG/1 ML DISP.SYRIN IVPUSH ONE (19:15)
[2022-09-19 19:16] LABS: CREATININE 1.1 mg/dL (0.55-1.3)
[2022-09-19 19:18] LABS: BILIRUBIN,TOTAL 0.8 mg/dL (0.2-1); TOT PROT 6.3 g/dl (6.4-8.2)
[2022-09-19 19:20] LABS: LACTIC ACID 3.2 mmol/L (0.4-2.0)
[2022-09-19 19:21] LABS: N-TERMINAL BNP 725.8 pg/ml (5-125)
[2022-09-19] MEDS ORDERED: ROCURONIUM BROMIDE 50 MG/5 ML VIAL IV ONE (19:24)
[2022-09-19] MEDS ORDERED: CEFEPIME HCL/D5W 2 GM/50 ML BAG IVPB ONE (19:34)
[2022-09-19] MEDS ORDERED: VANCOMYCIN 1 GM in D5W (PRE-DOCKED) 1,000 MG/250 ML (RESTRICTED TO ID ONLY IVPB ONE (19:34)
[2022-09-19] MEDS ORDERED: MIDAZOLAM HCL 2 MG/2 ML SINGLE DOSE VIAL ONE ×2 (19:47→20:05)
[2022-09-19 19:54] LABS: ARTERIAL BLD GAS O2 SATURATION 98.2 % (95-98); ARTERIAL BLOOD GAS BASE EXCESS -6.4 mmol/L (-2-2); ARTERIAL BLOOD GAS PO2 133.2 mmHg (80-100); ARTERIAL BLOOD GAS pH 7.238 (7.350-7.450)
[2022-09-19 19:58] LABS: ALLENS TEST POSITIVE
[2022-09-19 20:00] LABS: VENT MODE A/C; VENT RATE 20
[2022-09-19] MEDS ORDERED: MIDAZOLAM HCL 2 MG/2 ML SINGLE DOSE VIAL IVPUSH ONE (20:05)
[2022-09-19] MEDS ORDERED: FENTANYL NS IVPB 500 MCG/100 ML BAG IVPB ONE (20:44)
[2022-09-19] MEDS: ENOXAPARIN NA (PORCINE) 40 MG/0.4 ML DISP.SYRIN SQ SCH (21:33)
[2022-09-19] MEDS: AZITHROMYCIN IVPB 500 MG/250 ML BAG IVPB SCH (21:34)
[2022-09-19] MEDS: FENTANYL IVPB 500 MCG/100 ML BAG IVPB SCH (21:38)
[2022-09-19] MEDS ORDERED: INSULIN (NOVOLOG) ASPART 100 UNITS/ML 10ML VIAL ONE (21:49)
[2022-09-19] MEDS: INSULIN SLIDING SCALE (NOVOLOG) 1 VIAL SQ SCH (21:50)
[2022-09-19] MEDS ORDERED: CEFEPIME 2 GM in DEXTROSE 5%-WATER 100 ML IVPB ONE (22:00)
[2022-09-19] MEDS ORDERED: VANCOMYCIN 1 GM/200 ML PREMIX BAG (RESTRICTED TO ID ONLY) IVPB ONE (22:00)
[2022-09-19 22:14] LABS: ALLENS TEST POSITIVE; ARTERIAL BLD GAS O2 SATURATION 99.5 % (95-98); ARTERIAL BLOOD GAS BASE EXCESS -1.7 mmol/L (-2-2); ARTERIAL BLOOD GAS PO2 230.9 mmHg (80-100); ARTERIAL BLOOD GAS pH 7.378 (7.350-7.450)
[2022-09-19 22:15] LABS: VENT MODE A/C; VENT RATE 22
[2022-09-19] MEDS: CHLORHEXIDINE GLUCONATE 4% CLEANSER FOR DECOLONIZATION TP SCH (22:16)
[2022-09-19] MEDS: MUPIROCIN 2% TOPICAL OINTMENT FOR DECOLONIZATION NS SCH (22:16)
[2022-09-19 23:13] LABS: LACTIC ACID 2.8 mmol/L (0.4-2.0)
[2022-09-20] MEDS: INSULIN SLIDING SCALE (NOVOLOG) 1 VIAL SQ SCH ×5 (04:45→23:16)
[2022-09-20 04:46] LABS: EPI CELLS 17 /uL (0-25.1); HYALINE CASTS 4 /uL (0-3.1); PH,URINE 5.5 (5.0-8.0); URINE APPEARANCE CLEAR; URINE BACTERIA 2 /uL (0-1359); URINE BILIRUBIN NEGATIVE (NEGATIVE); URINE COLOR YELLOW; URINE GLUCOSE (UA) 2+ (NEGATIVE); URINE KETONE TRACE (NEGATIVE); URINE LEUK ESTERASE NEGATIVE (NEGATIVE); URINE NITRITE NEGATIVE (NEGATIVE); URINE PROTEIN 2+ (NEGATIVE); URINE RBC 7 /uL (0-23.9); URINE UROBILINOGEN 0.2 mg/dL (0.2-1.0); URINE WBC 11 /uL (0-25.8)
[2022-09-20 05:15] LABS: PHENCYCLIDINE,URINE NEGATIVE (NEGATIVE); URINE AMPHETAMINES NEGATIVE (NEGATIVE); URINE BARBITURATES NEGATIVE (NEGATIVE)
[2022-09-20 05:16] LABS: METHADONE, UR NEGATIVE (NEGATIVE)
[2022-09-20 05:20] LABS: COCAINE, UR POSITIVE (NEGATIVE); OPIATES, URI POSITIVE (NEGATIVE); URINE BENZODIAZEPINES POSITIVE (NEGATIVE)
[2022-09-20] MEDS ORDERED: INSULIN (NOVOLOG) ASPART 100 UNITS/ML 10ML VIAL ONE ×2 (05:55→12:00)
[2022-09-20 06:04] LABS: ARTERIAL BLD GAS O2 SATURATION 96.8 % (95-98); ARTERIAL BLOOD GAS BASE EXCESS -1.2 mmol/L (-2-2); ARTERIAL BLOOD GAS PO2 83.5 mmHg (80-100); ARTERIAL BLOOD GAS pH 7.454 (7.350-7.450)
[2022-09-20 06:05] LABS: ALLENS TEST POSITIVE; VENT MODE A/C; VENT RATE 22
[2022-09-20 07:07] LABS: HEMATOCRIT 42.7 % (35.4-49); HEMOGLOBIN 14.2 GM/dL (11.7-16.9); MCH 31.8 pg (25.7-33.7); MCHC 33.2 g/dl (32.0-35.9); MEAN CELL VOLUME 95.8 fl (80-96); MEAN PLT VOLUME 7.9 fl (7.5-11.1); PLATELET COUNT 281 10^3/uL (134-434); RBC 4.46 M/mm3 (4.00-5.60); RDW 13.7 % (11.9-15.9); WHITE BLOOD COUNT 15.3 K/mm3 (4.0-10.0)
[2022-09-20 07:10] LABS: INR 1.15 (0.83-1.09); PROTHROMBIN TIME (PATIENT) 13.3 SEC (9.7-13.0)
[2022-09-20 07:13] LABS: ACTIVATED PTT 28.4 SECONDS (25.2-36.5)
[2022-09-20 07:25] LABS: POTASSIUM 4.4 mmol/L (3.5-5.1)
[2022-09-20 07:26] LABS: CALCIUM 8.2 mg/dL (8.5-10.1)
[2022-09-20 07:27] LABS: BLOOD UREA NITROGEN 21.4 mg/dL (7-18); MAGNESIUM 1.9 mg/dL (1.8-2.4)
[2022-09-20 07:30] LABS: CREATININE 1.3 mg/dL (0.55-1.3)
[2022-09-20 07:32] LABS: BILIRUBIN,TOTAL 0.4 mg/dL (0.2-1); TOT PROT 5.3 g/dl (6.4-8.2)
[2022-09-20 07:39] LABS: ALBUMIN 2.4 g/dl (3.4-5.0)
[2022-09-20] MEDS ORDERED: FENTANYL NS IVPB 500 MCG/100 ML BAG IVPB ONE (07:53)
[2022-09-20 09:09] LABS: ANISOCYTOSIS 0; MACROCYTOSIS 1+
[2022-09-20] MEDS: AZITHROMYCIN IVPB 500 MG/250 ML BAG IVPB SCH (09:34)
[2022-09-20] MEDS: ENOXAPARIN NA (PORCINE) 40 MG/0.4 ML DISP.SYRIN SQ SCH (09:34)
[2022-09-20] MEDS ORDERED: CEFTRIAXONE 1 GM in DEXTROSE 5%-WATER - 50 ML IVPB SCH (10:00)
[2022-09-20] MEDS: PANTOPRAZOLE SODIUM 40 MG VIAL IVPUSH SCH (10:55)
[2022-09-20] MEDS: MUPIROCIN 2% TOPICAL OINTMENT FOR DECOLONIZATION NS SCH ×2 (10:55→22:02)
[2022-09-20] MEDS ORDERED: SODIUM CHLORIDE 1,000 ML IV STA (12:32)
[2022-09-20] MEDS ORDERED: SODIUM CHLORIDE 1,000 ML IV SCH ×2 (12:45→14:03)
[2022-09-20] MEDS: AMPICILLIN NA/SULBACTAM NA 3 GM in SODIUM CHLORIDE 100 ML IVPB SCH ×2 (15:07→20:04)
[2022-09-20] MEDS: PROPOFOL 1,000,000 MCG/100 ML VIAL IVPB SCH (20:03)
[2022-09-20] MEDS: FENTANYL IVPB 500 MCG/100 ML BAG IVPB SCH (20:04)
[2022-09-20] MEDS ORDERED: FENTANYL CITRATE/PF 50 MCG/ML VIAL IVPUSH ONE ×2 (21:36→21:38)
[2022-09-20] MEDS ORDERED: MIDAZOLAM HCL 2 MG/2 ML SINGLE DOSE VIAL IVPUSH ONE (21:37)
[2022-09-20] MEDS ORDERED: FENTANYL IVPB 500 MCG/100 ML BAG IVPB SCH ×2 (21:45→23:45)
[2022-09-20] MEDS: CHLORHEXIDINE GLUCONATE 4% CLEANSER FOR DECOLONIZATION TP SCH (22:02)
[2022-09-20] MEDS ORDERED: FENTANYL INJECTION 500 MCG in SODIUM CHLORIDE 100 ML IVPB SCH (23:45)
[2022-09-20] MEDS ORDERED: FENTANYL NS IVPB 500 MCG/100 ML BAG IVPB SCH (23:59)
[2022-09-21] MEDS: AMPICILLIN NA/SULBACTAM NA 3 GM in SODIUM CHLORIDE 100 ML IVPB SCH ×4 (02:17→20:25)
[2022-09-21] MEDS: PROPOFOL 1,000,000 MCG/100 ML VIAL IVPB SCH ×2 (02:34→06:43)
[2022-09-21] MEDS: INSULIN SLIDING SCALE (NOVOLOG) 1 VIAL SQ SCH ×2 (05:45→12:23)
[2022-09-21 07:15] LABS: BASO % 0.4 % (0-2.0); EOS % 0.2 % (0-4.5); HEMOGLOBIN 12.1 GM/dL (11.7-16.9); LYMPH % 12.1 % (8-40); MCH 31.4 pg (25.7-33.7); MCHC 31.8 g/dl (32.0-35.9); MEAN CELL VOLUME 98.6 fl (80-96); MEAN PLT VOLUME 8.1 fl (7.5-11.1); MONO % 6.2 % (3.8-10.2); NEUT % 81.1 % (42.8-82.8); PLATELET COUNT 258 10^3/uL (134-434); RBC 3.86 M/mm3 (4.00-5.60); RDW 13.5 % (11.9-15.9); WHITE BLOOD COUNT 12.6 K/mm3 (4.0-10.0)
[2022-09-21 07:35] LABS: POTASSIUM 3.9 mmol/L (3.5-5.1)
[2022-09-21 07:52] LABS: ALBUMIN 2.1 g/dl (3.4-5.0); CALCIUM 8.1 mg/dL (8.5-10.1)
[2022-09-21 07:53] LABS: BLOOD UREA NITROGEN 16.7 mg/dL (7-18); MAGNESIUM 2.1 mg/dL (1.8-2.4)
[2022-09-21 07:55] LABS: CREATININE 0.9 mg/dL (0.55-1.3); PHOSPHOROUS 2.4 mg/dL (2.5-4.9)
[2022-09-21 07:57] LABS: BILIRUBIN,TOTAL 0.2 mg/dL (0.2-1); TOT PROT 4.7 g/dl (6.4-8.2)
[2022-09-21] MEDS ORDERED: POTASSIUM PHOSPHATE 30 MM in SODIUM CHLORIDE 250 ML IVPB ONE (09:00)
[2022-09-21] MEDS ORDERED: LACTATED RINGERS SOLUTION 1,000 ML/1,000 ML INFUS.BAG IV STA (09:07)
[2022-09-21] MEDS: PANTOPRAZOLE SODIUM 40 MG VIAL IVPUSH SCH (09:48)
[2022-09-21] MEDS: ENOXAPARIN NA (PORCINE) 40 MG/0.4 ML DISP.SYRIN SQ SCH (09:48)
[2022-09-21] MEDS: AZITHROMYCIN IVPB 500 MG/250 ML BAG IVPB SCH (09:50)
[2022-09-21] MEDS: MUPIROCIN 2% TOPICAL OINTMENT FOR DECOLONIZATION NS SCH ×2 (09:53→21:08)
[2022-09-21] MEDS: DEXMEDETOMIDINE PREMIX 400 MCG/100 ML BAG IVPB SCH ×3 (11:30→23:18)
[2022-09-21] MEDS ORDERED: LORazepam 2 MG/ML SDV VIAL IVPUSH PRN ×2 (11:33→12:53)
[2022-09-21] MEDS: NICOTINE 21 MG/24 HOURS TOPICAL PATCH TD SCH (14:47)
[2022-09-21] MEDS: INSULIN (NOVOLOG) ASPART 100 UNITS/ML 10ML VIAL SQ SCH ×2 (16:55→21:05)
[2022-09-21] MEDS: ALBUTEROL SO4 2.5/IPRATROPIUM 0.5 INH SOL 3 ML VIAL.NEB. NEB PRN (20:42)
[2022-09-21] MEDS: CHLORHEXIDINE GLUCONATE 4% CLEANSER FOR DECOLONIZATION TP SCH (21:06)
[2022-09-22] MEDS: AMPICILLIN NA/SULBACTAM NA 3 GM in SODIUM CHLORIDE 100 ML IVPB SCH ×4 (03:00→23:01)
[2022-09-22] MEDS: INSULIN (NOVOLOG) ASPART 100 UNITS/ML 10ML VIAL SQ SCH ×3 (06:03→18:58)
[2022-09-22] MEDS: ALBUTEROL SO4 2.5/IPRATROPIUM 0.5 INH SOL 3 ML VIAL.NEB. NEB PRN (07:57)
[2022-09-22 08:01] LABS: BASO % 0.5 % (0-2.0); EOS % 0.8 % (0-4.5); HEMATOCRIT 45.1 % (35.4-49); HEMOGLOBIN 14.3 GM/dL (11.7-16.9); LYMPH % 21.2 % (8-40); MCH 31.8 pg (25.7-33.7); MCHC 31.8 g/dl (32.0-35.9); MEAN CELL VOLUME 100.1 fl (80-96); MEAN PLT VOLUME 8.4 fl (7.5-11.1); MONO % 6.8 % (3.8-10.2); NEUT % 70.7 % (42.8-82.8); PLATELET COUNT 239 10^3/uL (134-434); RBC 4.51 M/mm3 (4.00-5.60); RDW 13.4 % (11.9-15.9); WHITE BLOOD COUNT 7.2 K/mm3 (4.0-10.0)
[2022-09-22 08:13] LABS: POTASSIUM 4.5 mmol/L (3.5-5.1)
[2022-09-22 08:17] LABS: BLOOD UREA NITROGEN 15.7 mg/dL (7-18); MAGNESIUM 2.2 mg/dL (1.8-2.4)
[2022-09-22 08:19] LABS: PHOSPHOROUS 3.3 mg/dL (2.5-4.9)
[2022-09-22 08:20] LABS: CREATININE 0.8 mg/dL (0.55-1.3)
[2022-09-22 08:21] LABS: BILIRUBIN,TOTAL 0.4 mg/dL (0.2-1); TOT PROT 5.9 g/dl (6.4-8.2)
[2022-09-22 08:26] LABS: ALBUMIN 2.5 g/dl (3.4-5.0)
[2022-09-22] MEDS: PANTOPRAZOLE SODIUM 40 MG VIAL IVPUSH SCH (09:43)
[2022-09-22] MEDS: NICOTINE 21 MG/24 HOURS TOPICAL PATCH TD SCH ×2 (09:43→18:39)
[2022-09-22] MEDS: ENOXAPARIN NA (PORCINE) 40 MG/0.4 ML DISP.SYRIN SQ SCH (09:43)
[2022-09-22] MEDS: AZITHROMYCIN IVPB 500 MG/250 ML BAG IVPB SCH (09:44)
[2022-09-22] MEDS: MUPIROCIN 2% TOPICAL OINTMENT FOR DECOLONIZATION NS SCH (09:45)
[2022-09-22 12:46] LABS: HIV INTERPRETATION NEGATIVE (NEGATIVE)
[2022-09-22] MEDS ORDERED: BENZOCAINE/MENTH/CETYLPYRD CL 1 EACH LOZENGE MM PRN (12:59)
[2022-09-22] MEDS: DEXMEDETOMIDINE PREMIX 400 MCG/100 ML BAG IVPB SCH (14:43)
[2022-09-22] MEDS ORDERED: LORazepam 2 MG/ML SDV VIAL IVPUSH PRN (18:06)
[2022-09-22] MEDS ORDERED: ALBUTEROL SO4 2.5/IPRATROPIUM 0.5 INH SOL 3 ML VIAL.NEB. NEB PRN (18:06)
[2022-09-22] MEDS ORDERED: DEXMEDETOMIDINE PREMIX 400 MCG/100 ML BAG IVPB SCH (18:06)
[2022-09-22] MEDS ORDERED: CHLORHEXIDINE GLUCONATE 4% CLEANSER FOR DECOLONIZATION TP SCH (22:00)
[2022-09-22] MEDS ORDERED: MUPIROCIN 2% TOPICAL OINTMENT FOR DECOLONIZATION NS SCH (22:00)
[2022-09-22] MEDS: INSULIN SLIDING SCALE (NOVOLOG) 1 VIAL SQ SCH (23:10)
[2022-09-23] MEDS: AMPICILLIN NA/SULBACTAM NA 3 GM in SODIUM CHLORIDE 100 ML IVPB SCH ×2 (04:14→10:43)
[2022-09-23] MEDS: INSULIN SLIDING SCALE (NOVOLOG) 1 VIAL SQ SCH ×4 (06:53→22:25)
[2022-09-23 09:36] LABS: EOS % 1.1 % (0-4.5); HEMATOCRIT 39.1 % (35.4-49); HEMOGLOBIN 12.8 GM/dL (11.7-16.9); LYMPH % 22.1 % (8-40); MCHC 32.7 g/dl (32.0-35.9); MEAN PLT VOLUME 8.4 fl (7.5-11.1); MONO % 10.1 % (3.8-10.2); NEUT % 65.7 % (42.8-82.8); PLATELET COUNT 284 10^3/uL (134-434); RBC 3.99 M/mm3 (4.00-5.60); RDW 12.9 % (11.9-15.9); WHITE BLOOD COUNT 5.6 K/mm3 (4.0-10.0)
[2022-09-23 09:38] LABS: POTASSIUM 3.9 mmol/L (3.5-5.1)
[2022-09-23 09:45] LABS: CALCIUM 8.5 mg/dL (8.5-10.1)
[2022-09-23 09:46] LABS: ALBUMIN 2.2 g/dl (3.4-5.0); BLOOD UREA NITROGEN 11.6 mg/dL (7-18); MAGNESIUM 1.8 mg/dL (1.8-2.4)
[2022-09-23 09:49] LABS: CREATININE 0.8 mg/dL (0.55-1.3)
[2022-09-23 09:50] LABS: BILIRUBIN,TOTAL 0.6 mg/dL (0.2-1); TOT PROT 5.1 g/dl (6.4-8.2)
[2022-09-23] MEDS ORDERED: AZITHROMYCIN IVPB 500 MG/250 ML BAG IVPB SCH (10:00)
[2022-09-23] MEDS: PANTOPRAZOLE SODIUM 40 MG VIAL IVPUSH SCH ×2 (10:20→10:49)
[2022-09-23] MEDS: NICOTINE 21 MG/24 HOURS TOPICAL PATCH TD SCH ×2 (10:21→10:30)
[2022-09-23] MEDS: ENOXAPARIN NA (PORCINE) 40 MG/0.4 ML DISP.SYRIN SQ SCH (10:21)
[2022-09-23] MEDS: predniSONE 20 MG TABLET (UD) PO SCH (17:08)
[2022-09-23] MEDS: AMOX TR/POT CLAV 875MG/125MG TABLETS (FP) PO SCH (17:08)
[2022-09-24] MEDS: INSULIN SLIDING SCALE (NOVOLOG) 1 VIAL SQ SCH ×4 (06:35→21:09)
[2022-09-24] MEDS: AMOX TR/POT CLAV 875MG/125MG TABLETS (FP) PO SCH ×2 (08:52→17:10)
[2022-09-24] MEDS: predniSONE 20 MG TABLET (UD) PO SCH (09:05)
[2022-09-24] MEDS: ENOXAPARIN NA (PORCINE) 40 MG/0.4 ML DISP.SYRIN SQ SCH (09:05)
[2022-09-24] MEDS: PANTOPRAZOLE SODIUM 40 MG VIAL IVPUSH SCH (09:05)
[2022-09-24] MEDS: NICOTINE 21 MG/24 HOURS TOPICAL PATCH TD SCH (11:29)
[2022-09-24] MEDS: ALBUTEROL SO4 2.5/IPRATROPIUM 0.5 INH SOL 3 ML VIAL.NEB. NEB SCH ×3 (12:30→20:50)
[2022-09-24 15:49] VITALS: BMI 30.4
[2022-09-25 01:49] VITALS: RESP 18
[2022-09-25] MEDS: INSULIN SLIDING SCALE (NOVOLOG) 1 VIAL SQ SCH ×2 (06:19→11:53)
[2022-09-25] MEDS: ALBUTEROL SO4 2.5/IPRATROPIUM 0.5 INH SOL 3 ML VIAL.NEB. NEB SCH ×2 (07:48→11:47)
[2022-09-25] MEDS: AMOX TR/POT CLAV 875MG/125MG TABLETS (FP) PO SCH (09:04)
[2022-09-25 10:18] VITALS: PULSE 77
[2022-09-25] MEDS: NICOTINE 21 MG/24 HOURS TOPICAL PATCH TD SCH ×2 (10:34→10:41)
[2022-09-25] MEDS: ENOXAPARIN NA (PORCINE) 40 MG/0.4 ML DISP.SYRIN SQ SCH (10:34)
[2022-09-25] MEDS: predniSONE 20 MG TABLET (UD) PO SCH (10:34)
[2022-09-25] MEDS: PANTOPRAZOLE SODIUM 40 MG VIAL IVPUSH SCH (10:34)
[2022-09-25 14:30] VITALS: BP 134/80; TEMP 98.3
== END 2022-09-25 14:34 | disposition home or self-care (01) | DRG 137 ==
LOC: JER 17:36 → JERBED 19:33 → JICU 20:31 → J5S 09-22 16:48
PROVIDERS: ADMIT Internal Medicine Pulmonary Disease; ATTEND Family Medicine
PROC: 5A1945Z Respiratory Ventilation, 24-96 Consecutive Hours (ICD-10-PCS; principal; 2022-09-19)
PROC: 0BH17EZ Insertion of Endotracheal Airway into Trachea, Via Natural or Artificial Opening (ICD-10-PCS; 2022-09-19)
DX: J69.0 Pneumonitis due to inhalation of food and vomit (principal); I10 Essential (primary) hypertension; E11.9 Type 2 diabetes mellitus without complications; J45.909 Unspecified asthma, uncomplicated; Z79.84 Long term (current) use of oral hypoglycemic drugs; E87.20 Acidosis, unspecified; D72.829 Elevated white blood cell count, unspecified; F19.220 Other psychoactive substance dependence with intoxication, uncomplicated; J44.1 Chronic obstructive pulmonary disease with (acute) exacerbation; R13.10 Dysphagia, unspecified; F41.9 Anxiety disorder, unspecified; F32.A Depression, unspecified; F12.20 Cannabis dependence, uncomplicated; F14.20 Cocaine dependence, uncomplicated; E78.5 Hyperlipidemia, unspecified
CPT/HCPCS: 0241U-QW; 36415; 36600; 70490-TC; 71045-TC-FY; 71250-TC; 80053; 80307; 81003; 82803; 82962; 83605; 83735; 83880; 84100; 84484; 85025; 85610; 85730; 86850; 86900; 86901; 87040; 87070; 87086; 87205; 87389; 87899; 93005; 93010; 94002; 94640; 97116-GP; 97162-GP; 99291; J1100

== ENCOUNTER 2023-11-25 20:26 | Emergency (ER) | payer OTHER ==
[2023-11-25 20:51] VITALS: BP 137/87; PULSE 104; RESP 18; TEMP 98.4
[2023-11-25] MEDS: ACETAMINOPHEN 500 MG TABLET (FP) PO ONE (21:56)
[2023-11-25] MEDS ORDERED: ACETAMINOPHEN 325 MG TABLET (FP) ONE (21:57)
[2023-11-25] MEDS ORDERED: LIDOCAINE HCL 2% (20ML MULTI-DOSE VIAL) ONE (22:13)
[2023-11-25] MEDS ORDERED: CEPHALEXIN MONOHYDRATE 500 MG CAPSULE (UD) ONE (23:31)
[2023-11-25] MEDS: CEPHALEXIN MONOHYDRATE 500 MG CAPSULE (UD) PO ONE (23:33)
== END 2023-11-26 00:34 | disposition home or self-care (01) ==
LOC: JER 20:26
DX: M79.645 Pain in left finger(s) (principal); Y04.8XXA Assault by other bodily force, initial encounter; Y92.59 Other trade areas as the place of occurrence of the external cause
CPT/HCPCS: 70450-TC; 73130-TC-LT-FY; 99284-25

== ENCOUNTER 2024-03-08 20:15 | Emergency (ER) | payer OTHER ==
[2024-03-08 20:21] VITALS: BP 144/82; PULSE 90; RESP 20; TEMP 97.8; BMI 30.9
[2024-03-08] MEDS ORDERED: ALBUTEROL SO4 2.5/IPRATROPIUM 0.5 INH SOL 3 ML VIAL.NEB. NEB ONE (22:32)
[2024-03-08] MEDS: ALBUTEROL SO4 2.5/IPRATROPIUM 0.5 INH SOL 3 ML VIAL.NEB. NEB ONE (22:33)
== END 2024-03-08 23:30 | disposition left against medical advice (07) ==
LOC: JER 20:15
DX: R06.2 Wheezing (principal); R05.9 Cough, unspecified
CPT/HCPCS: 71046-TC-FY; 99283-25